=== PATIENT | female | born 1980 | race Caucasian/White ===

== ENCOUNTER 2019-02-25 20:20 | Emergency (ER) | payer MEDICAID, OTHER ==
[~2019-02-25] VITALS: Ht 182.9 cm; Wt 77.1 kg
[~2019-02-25 20:20] MED LIST: FOLI1TAB6 PO; HYDR-1421; LORA-622; METH2.5T3 PO; [UNRECOGNIZED DRUG - CODE] PO
[2019-02-25 20:24] VITALS: BP 127/89
[2019-02-25] MEDS ORDERED: methylPREDNISolone SOD SUCC 125 MG/2 ML VL IM ONE (22:30)
[2019-02-25] MEDS ORDERED: KETOROLAC TROMETH 60MG/2ML VIAL IM ONE (22:30)
== END 2019-02-25 23:40 | disposition home or self-care (01) ==
LOC: ER 20:23
DX: G43.909 Migraine, unspecified, not intractable, without status migrainosus (principal); M26.621 Arthralgia of right temporomandibular joint; R11.2 Nausea with vomiting, unspecified; L56.8 Other specified acute skin changes due to ultraviolet radiation
CPT/HCPCS: 96372; 99283; J1885; J2930